=== PATIENT | male | born 1990 | race Caucasian/White ===

== ENCOUNTER 2016-10-05 21:27 | Observation (INO) | payer OTHER ==
[~2016-10-05] VITALS: Ht 177.8 cm; Wt 88.9 kg
[2016-10-05] MEDS: OMNIPAQUE 240 MG/ML, 50 ML PO SCH ×2 (00:30→22:30)
[2016-10-05] MEDS ORDERED: OPTIRAY 350 100 ML VIAL HMH IV ONE (21:28)
[2016-10-05 21:45] VITALS: Ht 177.8 cm; Wt 88.9 kg
[2016-10-05] MEDS ORDERED: Ibuprofen 800 MG TAB PO PRN (21:50)
[2016-10-05 22:51] VITALS: BP_SYST 132; RESP 18; TEMP 100.2
[2016-10-06] VITALS (18 sets, daily range): BP systolic 115–140; RESP 11–19; TEMP 97.7–98.4
[2016-10-06] MEDS: OMNIPAQUE 240 MG/ML, 50 ML PO SCH ×3 (00:30→08:13)
[2016-10-06] MEDS: DEXTROSE 5% SALINE 0.45% 1,000 ML IV SCH ×2 (04:28→17:15)
[2016-10-06] MEDS ORDERED: GLYCOPYRROLATE 0.2 MG/ML VIAL IV ONE ×2 (08:05→11:05)
[2016-10-06] MEDS ORDERED: MIDAZOLAM 2 MG/2 ML INJ IV ONE (08:05)
[2016-10-06] MEDS ORDERED: LACT RINGERS 1,000 ML IV SCH (08:05)
[2016-10-06] MEDS ORDERED: MEPERIDINE 25 MG/ML IV PRN (08:30)
[2016-10-06] MEDS ORDERED: OXYCODONE 5 MG TAB PO PRN (08:30)
[2016-10-06] MEDS ORDERED: MORPHINE 4 MG/ML SYR IV PRN (08:30)
[2016-10-06] MEDS ORDERED: ONDANSETRON 4 MG VIAL IV PRN (08:30)
[2016-10-06] MEDS ORDERED: MORPHINE 2 MG/ML SYR IV PRN (08:30)
[2016-10-06] MEDS: DILAUDID 1 MG/ML AMP IV PRN ×5 (10:05→21:33)
[2016-10-06] MEDS ORDERED: CEFAZOLIN (LD/OB) 100 ML IV ONE (10:38)
[2016-10-06] MEDS ORDERED: BUPIVACA/EPI 0.25% PF 30ML NERVEBLOCK ONE (10:41)
[2016-10-06] MEDS ORDERED: NEOSTIGMINE 10 MG/10 ML VIAL IV ONE (11:05)
[2016-10-06] MEDS ORDERED: DILAUDID 1 MG/ML AMP IV ONE (11:05)
[2016-10-06] MEDS ORDERED: ONDANSETRON 4 MG VIAL IV PUSH ONE (11:05)
[2016-10-06] MEDS ORDERED: ROCURONIUM 50 MG VIAL IV ONE (11:05)
[2016-10-06] MEDS ORDERED: KETOROLAC 30 MG/ML VIAL IV ONE ×2 (11:05→13:45)
[2016-10-06] MEDS ORDERED: PROPOFOL 20 ML PER ML IV ONE (11:05)
[2016-10-06] MEDS: ONDANSETRON 4 MG VIAL IV PUSH PRN ×2 (13:53→18:17)
[2016-10-06] MEDS: OXYCODONE 5 MG TAB PO PRN ×2 (13:54→19:23)
[2016-10-06] MEDS ORDERED: MISSING DOSE XX ONE (19:30)
[2016-10-06] MEDS ORDERED: MIDAZOLAM 2 MG/2 ML INJ ONE (22:40)
[2016-10-07 00:20] VITALS: BP_SYST 121; RESP 16; TEMP 99
[2016-10-07] MEDS: OXYCODONE 5 MG TAB PO PRN (00:29)
[2016-10-07 03:27] VITALS: BP_SYST 122; RESP 18; TEMP 98.2
[2016-10-07 08:03] VITALS: BP_SYST 128; RESP 20; TEMP 97.9
[2016-10-07 08:16] VITALS: BP_SYST 128; RESP 20; TEMP 97.9
== END 2016-10-06 13:45 | disposition home or self-care (01) ==
LOC: ENRESERVTM → ENRESERVDT → ENRESERV → ONS 21:27 → 3S 22:28 → ONS 10-06 03:35
PROVIDERS: ADMIT Surgery; ATTEND Surgery
DX: K35.80 Unspecified acute appendicitis (principal); E03.9 Hypothyroidism, unspecified
CPT/HCPCS: 74177; 80053; 83605; 83690; 85025; 88304